=== PATIENT | female | born 1975 | race Caucasian/White ===

== ENCOUNTER 2017-06-27 12:07 | Emergency (ER) | payer MEDICAID ==
[~2017-06-27] VITALS: Ht 162.6 cm; Wt 77.1 kg
[2017-06-27 12:11] VITALS: BP 123/71; Ht 162.6 cm; Wt 77.1 kg
== END 2017-06-27 12:39 | disposition home or self-care (01) ==
LOC: ED 12:07
DX: L60.0 Ingrowing nail (principal); E78.00 Pure hypercholesterolemia, unspecified

== ENCOUNTER 2017-08-03 12:15 | Emergency (ER) | payer MEDICAID ==
[~2017-08-03] VITALS: Ht 152.4 cm; Wt 76.7 kg
[2017-08-03 12:19] VITALS: Ht 152.4 cm; Wt 76.7 kg
[2017-08-03 13:59] VITALS: BP 113/80
== END 2017-08-03 13:59 | disposition home or self-care (01) ==
LOC: ED 12:15
DX: L03.031 Cellulitis of right toe (principal); L60.0 Ingrowing nail; E78.00 Pure hypercholesterolemia, unspecified

== ENCOUNTER 2019-01-05 18:34 | Emergency (ER) | payer MEDICAID ==
[~2019-01-05] VITALS: Ht 152.4 cm; Wt 73.5 kg
[2019-01-05 18:46] VITALS: Ht 152.4 cm; Wt 73.5 kg
[2019-01-05 22:24] VITALS: BP 134/69
== END 2019-01-05 22:25 | disposition home or self-care (01) ==
LOC: ED 18:34
DX: L60.0 Ingrowing nail (principal)
CPT/HCPCS: J2001